=== PATIENT | female | born 1970 | race Caucasian/White ===

== ENCOUNTER 2022-09-27 11:23 | Emergency (ER) | payer MEDICARE, MEDICAID, SELFPAY ==
--- NOTE | ~2022-09-27 | XR_ITS ---
XR chest 2V 09/27/2022 12:19 Indication: Hypertension. Asthma. Procedure: 2 view chest Comparison: No prior studies for comparison. Findings: Heart size normal. There are bilateral interstitial infiltrates of the lower lungs peripher ally. No pleural effusion or pneumothorax. No acute osseous abnormality. Impression: 1: Bilateral interstitial infiltrates of the lung bases which may reflect mild chronic edema or atypi serg pneumonia. Reviewed, dictated and finalized at location [] Impression: 1: Bilateral interstitial infiltrates of the lung bases which may reflect mild chronic edema or atypical pneumonia.
[2022-09-27 11:24] VITALS: BP 183/88; PULSE 107; RESP 20; TEMP 36.3; O2SAT 99
--- NOTE | 2022-09-27 11:40 | ECG_ITS ---
Measurements Intervals [place] Rate: 96 P: 81 GA: 186 QRS: 83 QRSD: 90 T: 82 QT: 346 QTc: 438 Interpretive Statements SINUS RHYTHM POSSIBLE RIGHT ATRIAL ENLARGEMENT [0.25mV P-WAVE] LEFT ATRIAL ENLARGEMENT [-0.15mV P-WAVE IN V1/V2] POSSIBLE RIGHT VENTRICULAR CONDUCTION DELAY [RSR (QR) IN V1/V2] ABNORMAL ECG NO PREVIOUS ECG AVAILABLE FOR COMPARISON Electronically Signed On 09-27-2022 16:15:02 CDT by Tulio Flores M.D.
--- NOTE | 2022-09-27 11:44 | PC.NURSE ---
PT WITH MULTIPLE COMPLAINTS. STATES HER BP HAS BEEN ELEVATED AND THEY PRESCRIBED HER AN ANXIETY MEDICATIONS. ALSO C/O GANGRENE TO BOTH THUMBS, INTERMITTENT CHEST PRESSURE, ABD PAIN, N/V, AND DIZZINESS. SEEING PAIN MANAGEMENT FOR PAIN BUT STATES SHE IS MAXED OUT ON MEDS.
[2022-09-27 12:00] VITALS: BP 168/93; PULSE 95; RESP 18; O2SAT 99
--- NOTE | 2022-09-27 12:06 | ED.GENADULT ---
HPI - General Adult General Chief complaint: Recheck/Abnormal Lab/Rx <Kenyon Bonner MD - Last Filed: 09/27/22 12:54> Stated complaint: High blood pressure <Kenyon Bonner MD - Last Filed: 09/27/22 12:54> Time Seen by Provider: 09/27/22 11:43 <Kenyon Bonner MD - Last Filed: 09/27/22 12:54> History of Present Illness HPI narrative: Patient is a 52-year-old female who presents ER with concerns for high blood pressure. She was seen by her primary care physician today and was referred to the ER. She was seen earlier this morning, after being referred to the ER the PCP note states that patient decided she needed to go eat breakfast before coming to the ER, and then arrived several hours later. Patient recently seen by pain management yesterday. She is run out of pain patches as she had been out of town. Apparently she has been having intermittent dizziness that will cause her to pass out. She had been on Norvasc when this was occurring and discontinued it herself. This was prescribed while she was out of town as well. Denies history of hypertension. Reports when they take her blood pressure at home it ranges from the 150 systolic to the 180s systolic. Patient has no chest pain or chest pressure. No fevers or chills or sweats. No runny nose sore throat or productive cough. 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 She reports she has some scabbing over her thumbs which is slightly new. She claims this is dry gangrene. There is no actual black necrotic tissue to the hands or feet. There is certainly some scabbed areas. There is normal perfusion with blanching of the skin noted. <Kenyon Bonner MD - Last Filed: 09/27/22 12:54> Related Data Home medications: Home Medications Medication Instructions Recorded Confirmed fentanyl 50 mcg/hr transdermal 1 patch transdermal Q72H 02/07/22 09/27/22 patch hydrocodone 10 mg-acetaminophen 2 tablet PO Q12H 02/07/22 09/27/22 325 mg tablet aspirin 81 mg tablet,delayed 81 mg PO DAILY 09/27/22 09/27/22 release (Adult Aspirin Regimen) <Kenyon Bonner MD - Last Filed: 09/27/22 12:54> Allergies/adverse reactions: Allergies Allergy/AdvReac Type Severity Reaction Status Date / Time No Known Allergies Allergy Verified 09/27/22 07:54 <Kenyon Bonner MD - Last Filed: 09/27/22 12:54> Review of Systems Review of Systems: All systems reviewed & are unremarkable except as noted in HPI and below <Kenyon Bonner MD - Last Filed: 09/27/22 12:54> Constitutional: Constitutional: Denies chills, Denies fatigue and Denies fever(s) <Kenyon Bonner MD - Last Filed: 09/27/22 12:54> ENT: Denies nasal congestion and Denies sore throat <Kenyon Bonner MD - Last Filed: 09/27/22 12:54> Cardiovascular: Cardiovascular: Denies chest pain, Denies rapid heart rate and Denies radiating jaw, neck or arm pain <Kenyon Bonner MD - Last Filed: 09/27/22 12:54> Respiratory: Respiratory: Denies cough and Denies dyspnea <Kenyon Bonner MD - Last Filed: 09/27/22 12:54> Gastrointestinal: Gastrointestinal: Denies abdominal pain, Denies nausea and Denies vomiting <Kenyon Bonner MD - Last Filed: 09/27/22 12:54> Neurologic: Reports syncope, Denies focal weakness and Denies numbness <Kenyon Bonner MD - Last Filed: 09/27/22 12:54> [facility] Past Medical History Medical History: Medical History (Updated 09/27/22 @ 13:41 by Iam Ram MD) ADD (attention deficit disorder) Anxiety as acute reaction to exceptional stress Atrophy of vagina Body mass index (BMI) less than 16.5 Depression Gangrene Raynaud's disease with gangrene Scleroderma <Kenyon Bonner MD - Last Filed: 09/27/22 12:54> Surgical History Surgical History: Surgical History (Updated 09/27/22 @ 12:10 by Kenyon Bonner MD) Amputation of toe <Kenyon Rodriguez
[2022-09-27 12:13] LABS: Basophils Absolute Auto 0.1 K/mm3 (0.0-0.1); Basophils Percent Auto 0.5 % (0.2-1.2); Eosinophils Absolute Auto 0.2 K/mm3 (0-0.3); Eosinophils Percent Auto 1.5 % (0-4.4); Hematocrit 50.1 % (37.0-47.0); Hemoglobin 16.3 g/dL (12.0-15.0); Immature Granulocyte Absolute 0.03 K/mm3 (0.00-0.031); Immature Granulocyte Percent A 0.3 % (0-0.5); Lymphocytes Absolute Auto 2.22 K/mm3 (0.9-3.2); Lymphocytes Percent Auto 22.9 % (18.3-44.2); Mean Corpuscular HGB Conc 32.5 g/dl (32-36); Mean Corpuscular Hemoglobin 29.1 pg (26-34); Mean Corpuscular Volume 89.3 fl (80-100); Mean Platelet Volume 8.8 fl (7.4-10.4); Monocytes Absolute Auto 0.4 K/mm3 (0.1-0.6); Monocytes Percent Auto 4.3 % (2.6-8.5); Neutrophils Absolute Auto 6.8 K/mm3 (1.3-6.7); Neutrophils Percent Auto 70.5 % (45.5-73.1); Platelet Count Result 369 k/mm3 (150-375); Red Blood Count 5.61 M/mm3 (4.2-5.4); Red Cell Distribution Width 13.8 % (11.5-14.5); White Blood Count 9.7 K/mm3 (4.5-10.0)
[2022-09-27 12:24] LABS: Alanine Aminotransferase 17 U/L (6-35); Alkaline Phosphatase 150 U/L (38-126); Anion Gap 11 mmol/L (8-16); Aspartate Amino Transferase 30 U/L (14-36); Bilirubin,Total 0.5 mg/dL (0.2-1.3); Blood Urea Nitrogen 18 mg/dL (7-17); Calcium 9.4 mg/dL (8.4-10.2); Carbon Dioxide 25 mmol/L (22-30); Chloride 103 mmol/L (98-107); Estimated CRCL calculation 31 ml/min; Estimated Glomerular Filt Rate 52; Glucose 146 mg/dL (65-110); INR 0.9; Lipase 75 U/L (23-300); Potassium 4.3 mmol/L (3.4-5.0); Prothrombin Time 12.9 Seconds (11.1-14.7); Sodium 139 mmol/L (137-145)
[2022-09-27 12:25] LABS: Partial Thromboplastin Time 31.4 SECONDS (22.3-36.8)
[2022-09-27 12:36] LABS: Troponin I < 0.012 ng/mL (0.000-0.034)
[2022-09-27] MEDS: ACETAMINOPHEN 325 MG TABLET 650 MG PO (12:53)
[2022-09-27 13:00] VITALS: BP 160/84; PULSE 87; RESP 16; O2SAT 99
[2022-09-27 13:57] VITALS: BP 173/92; PULSE 83; RESP 18; O2SAT 97
== END 2022-09-27 13:59 | disposition home or self-care (01) ==
PROVIDERS: Emergency Medicine; Emergency Provider Preventive Medicine Aerospace Medicine; PCP Family Medicine
DX: I10 Essential (primary) hypertension (principal); I73.00 Raynaud's syndrome without gangrene; M34.9 Systemic sclerosis, unspecified; F98.8 Other specified behavioral and emotional disorders with onset usually occurring in childhood and adolescence; F17.210 Nicotine dependence, cigarettes, uncomplicated; Z89.429 Acquired absence of other toe(s), unspecified side; Z79.82 Long term (current) use of aspirin; R91.8 Other nonspecific abnormal finding of lung field; Z89.029 Acquired absence of unspecified finger(s)
CPT/HCPCS: 36415; 71046; 80053; 83690; 84484; 85025; 85610; 85730; 93005; 99284; A9270